=== PATIENT | female | born 1965 | race Two or more races ===

== ENCOUNTER 2021-04-29 03:38 | Emergency (ER) | payer OTHER ==
[~2021-04-29] VITALS: Ht 170.2 cm; Wt 74.8 kg
[~2021-04-29 03:38] MED LIST: FIORICET 50-301 EACH PO; FIORICET TABLET1 TAB PO; LIPITOR20 MG PO
[2021-04-29] MEDS ORDERED: PEPCID40 MG PO (06:51)
[2021-04-29] MEDS ORDERED: PROTONIX40 MG PO (06:51)
[2021-04-29] MEDS ORDERED: ZOFRAN4 MG PO ×2 (06:52)
== END 2021-04-29 06:57 ==
LOC: ER 03:38
DX: R10.13 Epigastric pain (principal)

== ENCOUNTER 2021-04-29 12:49 | Emergency (ER) | payer OTHER ==
[~2021-04-29] VITALS: Ht 172.7 cm; Wt 65.8 kg
[~2021-04-29 12:49] MED LIST changes: +PEPCID40 MG PO; +PROTONIX40 MG PO; +ZOFRAN4 MG PO
== END 2021-04-29 19:38 | disposition home or self-care (01) ==
LOC: ER 12:49
DX: K29.60 Other gastritis without bleeding (principal); K80.20 Calculus of gallbladder without cholecystitis without obstruction

== ENCOUNTER 2021-05-02 19:28 | Emergency (ER) | payer OTHER ==
[~2021-05-02] VITALS: Ht 172.7 cm; Wt 65.3 kg
[2021-05-02] MEDS ORDERED: DICY20TA (19:56)
[2021-05-02] MEDS ORDERED: LEVSIN/SL0.125 MG SL (22:23)
== END 2021-05-02 22:39 | disposition home or self-care (01) ==
LOC: ER 19:28
DX: K80.50 Calculus of bile duct without cholangitis or cholecystitis without obstruction (principal); R10.11 Right upper quadrant pain

== ENCOUNTER 2021-06-29 08:56 | Outpatient (CLI) | payer OTHER ==
[~2021-06-29 08:56] MED LIST changes: +DICY20TA; +LEVSIN/SL0.125 MG SL
== END 2021-06-29 08:57 | disposition home or self-care (01) ==
LOC: NUCLEAR 08:56
PROVIDERS: ATTEND Internal Medicine Gastroenterology
DX: K81.1 Chronic cholecystitis (principal)
CPT/HCPCS: 78226; A9537; J2805

== ENCOUNTER 2022-04-08 09:55 | Emergency (ER) | payer OTHER ==
[~2022-04-08] VITALS: Ht 172.7 cm; Wt 63.5 kg
[2022-04-08] MEDS ORDERED: CELEBREX200MG PO (11:12)
[2022-04-08] MEDS ORDERED: METAXALONE800 MG PO (11:12)
== END 2022-04-08 11:20 | disposition home or self-care (01) ==
LOC: ER 09:55
DX: M77.8 Other enthesopathies, not elsewhere classified (principal)